=== PATIENT | female | born 2000 | race Caucasian/White ===

== ENCOUNTER 2024-09-05 23:52 | Emergency (ER) | payer OTHER, SELFPAY ==
[2024-09-06] VITALS (13 sets, daily range): BP systolic 95–131; BP diastolic 44–83; BMI 22.3
[2024-09-06] MEDS: NSS 500 IV (03:17)
--- NOTE | 2024-09-06 03:32 | ED.GENMED ---
History of Present Illness
General
Chief Complaint: Foreign Body Removal
Source: patient and significant other
Time Seen by Provider: 09/06/24 01:18
History of Present Illness
History of Present Illness:
23-year-old female presents after she had a Ale earring stuck in her left ear. Patient states that she was reaching up for and somehow it moved into her external auditory canal. She describes mild discomfort but no other symptoms. Boyfriend
states there is a stem on the backside of it.
Past History
Past History
ED Past Medical History: None
ED Past Surgical History: Appendectomy and Other (Bilateral breast implants)
Phy Exam
Physical Exam
Physical Exam:
CONSTITUTIONAL Vital signs reviewed, Patient alert and oriented to person, place and time. Well-appearing
HEAD atraumatic, normocephalic.
EYES eyelids normal to inspection, Extraocular muscles intact, Conjunctiva normal, Sclera normal.
ENT PERRLA tearing noted at the petrous portion of the external auditory canal. Unable to see TM
NECK normal range of motion, Trachea midline, no jugular venous distention.
RESP no respiratory distress
BACK No obvious deformities
UPPER EXTREMITY Gross Range of motion normal, gross motor strength normal
LOWER EXTREMITY Gross range of motion normal, Gross motor strength normal
NEURO Speech normal, No focal motor deficits include, [place] coma scale 15, Memory normal, Cranial Nerves intact to screening exam.
SKIN Skin warm, dry, and normal in color.
PSYCHIATRIC Patient oriented to person place and time, Normal affect.
Course
Orders/Labs/Results
Orders:
Orders
09/06/24 02:09
Lidocaine/Epinephrine/Tetracai [Let Topical Anesthetic Gel] 3 ml .ROUTE .STK-MED ONE
09/06/24 03:01
Propofol [Diprivan] 20 ml .ROUTE .STK-MED
09/06/24 03:08
Propofol [Diprivan] 20 ml .ROUTE .STK-MED
09/06/24 03:15
0.9% Sodium Chloride 500 ml [Nss] 500 ml IV BOLUS
Vital Signs
Initial and Last Documented VS:
Initial Vital Signs
Temp Pulse Resp BP Pulse Ox
98.6 F 91 20 131/79 100
09/06/24 00:07 09/06/24 00:07 09/06/24 00:07 09/06/24 00:07 09/06/24 00:07
Last Documented Vital Signs
Temp Pulse Resp BP Pulse Ox
98.6 F 91 21 110/64 98
09/06/24 00:07 09/06/24 03:40 09/06/24 03:40 09/06/24 03:40 09/06/24 03:40
Procedures
Moderate Sedation
ASA Risk Score: Class I
Chart and allergies reviewed: Yes
Consent for anesthesia obtained: Yes
Time out completed (validating right patient & procedure): Yes
Moderate Sedation Start Time(when first medication is given): 03:23
History of difficult intubation: No
Airway free of obstruction: Yes
Patient has a gag reflex: Yes
Patient is able to open mouth: Yes
Patient has no dentures: Yes
Patient has no loose teeth: Yes
Medication administered by Provider during Moderate Sedation: IV Propofol (mg) (100)
Total dose administered: 100
Time drug administered: 03:23
Moderate Sedation Procedure End Time: 03:38
Foreign Body Removal-Ear
Left External canal:
Tenderness: severe
Any local drainage: none
Removal of foreign body using: curette
Exam of canal after removal: inflammation of canal
Additional Information:
Question possible injury to the TM by the stem as there is punctate blood at the 6 o'clock position.
MDM/Problems Addressed
MDM/Problems Addressed:
Ear foreign body, tympanic membrane injury
*Pulse Oximetry
Patient hypoxic: no
*Critical Care Note
Total Time (30-74mins, 75-104mins- exclusive of procedures): Not Applicable
Data Reviewed
Source: patient
Patient Management
Escalation/DeEscalation of care consider admission/obs:
Patient poorly tolerated attempts at removal. Attempts at removal included suction, flushing and curette. Patient was sedated and I was able to successfully remove the foreign body. Question injury to the TM. Cover with antibiotics topically and
have ENT follow-up
ED Attending Note
-
Portions of this chart may have been created with voice recognition software.� Occasional wrong word or��sound alike� substitutions may have occurred due to the inherent limitations of voice recognition software.
Discharge Plan
Departure
Patient Disposition: Home (Routine Discharge)
Date of Disposition: 09/06/24
Time of Disposition: 03:37
Patient with high blood pressure during this ER visit?: No
Discharge Problem:
Ear foreign body
Instructions: Foreign Body in Ear (DC)
Prescriptions:
New
ciprofloxacin-dexamethasone 0.3-0.1 % drops,suspension
4 drp otic (ear) BID 7 Days Qty: 7.5 0RF
Referrals:
NONE,* [Family Provider] -
Activity Restrictions/Additional Instructions:
Please see your doctor or ENT in the next 3 to 5 days for follow-up and reevaluation of your eardrum. Return immediately for bleeding, worsening pain, fevers or any other concerns.
Interventions
Interventions:
*Risk Screen - Suicide Last Done: 09/06/24 00:07
*General Assessment Last Done: 09/06/24 00:07
*Neglect/Abuse Screening Last Done: 09/06/24 00:07
ED- Fall Risk Assessment Last Done: 09/06/24 00:07
*ED COVID-19 Vaccine History Last Done: 09/06/24 00:07
Discharge Date and Time
Print Language: ROMANSH
== END 2024-09-06 04:40 | disposition home or self-care (01) ==
LOC: EMR 23:52
PROVIDERS: EMERGENCY PHYSICIAN Emergency Medicine
DX: T16.2XXA Foreign body in left ear, initial encounter (principal); W44.8XXA Other foreign body entering into or through a natural orifice, initial encounter
CPT/HCPCS: 99285; 96360; 69200